=== PATIENT | male | born 1980 | race Caucasian/White ===

== ENCOUNTER 2017-01-04 13:58 | Day surgery (SDC) | payer OTHER ==
--- NOTE | ~2017-01-04 | OP ---
Record Of Operation [facility] [address] [place]. [address] NAME: POLO GARCIA : 76 STATUS : [facility]#: [id number] AGE: 36 ADM/REG DATE : 01/04/17 MR#: [id number] REPORT SERV DATE: 01/04/17 DICTATED BY: MAYRA ALCAZAR DATE: 01/04/17 REPORT STATUS : Draft TRANSCRIBED BY: MODL DATE: 01/04/17 DATE OF PROCEDURE: 01/04/2017 PREPROCEDURE DIAGNOSIS: 7 mm left ureteral pelvic junction calculus. POSTPROCEDURE DIAGNOSIS: 7 mm left ureteral pelvic junction calculus. PROCEDURE: Left ESWL. [employer] SUPERVISOR: Radha Blanc. ANESTHESIA: MAC. HISTORY: Mr. Garcia is a 36-year-old white gentleman with a symptomatic left ureteral calculus. We discussed treatment options, and he requested left ESWL. Risks specific to this procedure include, but not limited to bleeding, infection, incomplete stone fragmentation, Steinstrasse, hematoma, injury to neighboring organs, need for further urologic procedures, anesthesia complications, and so forth. I answered all his questions I believe to his satisfaction. Subsequently, he requested the procedure and provided informed written consent. PROCEDURE IN DETAIL: On 01/04/2017, the patient was brought to the lithotripsy suite. He was placed supine on the [employer]ornier Compact Delta II lithotripter. Biplanar fluoroscopy was used to localize the left ureteral calculus. A time-out was called. The proper patient and procedure were confirmed. Levaquin was administered as a perioperative antibiotic. At this time, the anesthesia team established monitored anesthesia care. Subsequently, we delivered a total of 2500 shocks at a maximum power level of 4 kilovolts and rate of 120 shocks per minute to the calculus. Fluoroscopy time was 1 minute 28 seconds. The patient tolerated the procedure well. Awakened and transferred to the recovery area in stable condition. RAC/JESSICA Mayra Alcazar M.D. / [id number] CC: Clem Guidry DO
[~2017-01-04 13:58] MED LIST: PERCOCET 7.5/321 TAB PO
== END 2017-01-04 19:16 | disposition home or self-care (01) ==
LOC: SDC 13:58
PROVIDERS: Urology
PROC: 0TF4XZZ Fragmentation in Left Kidney Pelvis, External Approach (ICD-10-PCS; principal; 2017-01-04 16:00)
DX: N20.1 Calculus of ureter (principal); Z87.442 Personal history of urinary calculi; Z87.891 Personal history of nicotine dependence; Z79.891 Long term (current) use of opiate analgesic
CPT/HCPCS: 50590; 74000; A9270-GY; J2405